=== PATIENT | male | born 1970 | race Two or more races ===

== ENCOUNTER 2020-02-15 13:41 | Emergency (ER) | payer OTHER ==
[~2020-02-15] VITALS: Ht 172.7 cm; Wt 99.7 kg
--- NOTE | 2020-02-15 15:44 | NUR ---
[employer]: PT AMBULATORY TO ROOM FROM LOBBY
[2020-02-15 15:59] LABS: ALBUMIN 4.5 g/dL (3.4-5.0); ANION GAP 4 mmol/L (5-15); CALCIUM 9.4 mg/dL (8.5-10.1); CHLORIDE 101 mmol/L (98-107); CREATININE 0.92 mg/dL (0.7-1.3)
[2020-02-15 16:03] LABS: TROPONIN I < 0.015 ng/mL (0.000-0.045)
--- NOTE | 2020-02-15 16:10 | NUR ---
Provider and RN at bedside.
[2020-02-15 16:18] LABS: BASOPHILS % (AUTO) 1 % (0-1); EOSINOPHILS % (AUTO) 5 % (1-7); LYMPHOCYTES % (AUTO) 22 % (22-44); MEAN CORPUSCULAR HEMOGLOBIN 31.9 pg (27.5-34.5); MEAN CORPUSCULAR HGB CONC 34.2 g/dL (33.2-36.2); MEAN PLATELET VOLUME 7.9 fL (7.4-10.4); MONOCYTES % (AUTO) 10 % (2-9); NEUTROPHILS % (AUTO) 63 % (42-75); PLATELET COUNT 185 x10^3/uL (130-400); RED BLOOD COUNT 5.35 x10^6/uL (4.38-5.82); RED CELL DISTRIBUTION WIDTH 13.1 % (9.4-14.8)
[2020-02-15 16:29] LABS: MD NO
--- NOTE | 2020-02-15 16:35 | NUR ---
Pt back from imaging
[2020-02-15] MEDS ORDERED: KETOROLAC 30 MG/1 ML ONE (17:14)
[2020-02-15] MEDS ORDERED: DIAZEPAM 5 MG TABLET ONE (17:14)
--- NOTE | 2020-02-15 17:23 | NUR ---
Valium and toradol given
[2020-02-15] MEDS ORDERED: KETOROLAC 30 MG/1 ML IM ONE (17:30)
[2020-02-15] MEDS ORDERED: DIAZEPAM 5 MG TABLET PO ONE (17:30)
[2020-02-15 17:41] VITALS: BP 144/94
--- NOTE | 2020-02-15 17:42 | NUR ---
Pt reports toradol and valium decreased pain level to 5/10
--- NOTE | 2020-02-15 17:49 | NUR ---
Confirmed that pt. is not driving self home- getting a ride home.
[2020-02-15 17:50] LABS: MICROSCOPIC AUTO
== END 2020-02-15 18:10 | disposition other institution (70) ==
LOC: ED 17:27
DX: S46.811A Strain of other muscles, fascia and tendons at shoulder and upper arm level, right arm, initial encounter (principal); M62.830 Muscle spasm of back; R73.9 Hyperglycemia, unspecified; I48.91 Unspecified atrial fibrillation; I10 Essential (primary) hypertension; X58.XXXA Exposure to other specified factors, initial encounter; Y93.89 Activity, other specified; Y92.009 Unspecified place in unspecified non-institutional (private) residence as the place of occurrence of the external cause; Y99.8 Other external cause status
CPT/HCPCS: 36415; 71046; 72050; 80048; 81001; 82040; 83690; 84484; 85025; 93005; 96372; 99285; J1885